=== PATIENT | female | born 1955 | race Caucasian/White ===

== ENCOUNTER 2017-05-04 11:01 | Emergency (ER) | payer OTHER ==
[~2017-05-04] VITALS: Ht 165.1 cm; Wt 100.3 kg
[~2017-05-04 11:01] MED LIST: TRICOR145 MG PO; WYGESIC,DARV1 TABLET PO
[2017-05-04 15:01] LABS: ANION GAP 11 MEQ/L (2-14); CHLORIDE 100 MEQ/L (99-109); GFR ESTIMATE (CALCULATED) > 59 mL/min/; GLUCOSE 119 mg/dL (70-99); POTASSIUM 3.5 MEQ/L (3.7-5.4); SAMPLE HEMOLYSIS CHECK 0; SAMPLE ICTERIC CHECK 0; SAMPLE LIPEMIA CHECK 0; SODIUM 137 MEQ/L (136-147); UREA NITROGEN (BUN) 7 mg/dL (9-23)
[2017-05-04 15:05] LABS: TROP-I INTERPRETATION NEGATIVE; TROPONIN-I 0.01 ng/mL (0.0-0.30)
[2017-05-04 15:52] VITALS: BP 158/98
== END 2017-05-04 15:53 | disposition home or self-care (01) ==
LOC: EME 11:01
PROVIDERS: Physician Assistant
DX: R07.9 Chest pain, unspecified (principal); R23.2 Flushing; T50.2X5A Adverse effect of carbonic-anhydrase inhibitors, benzothiadiazides and other diuretics, initial encounter; T43.225A Adverse effect of selective serotonin reuptake inhibitors, initial encounter; I10 Essential (primary) hypertension; E78.5 Hyperlipidemia, unspecified; Z90.12 Acquired absence of left breast and nipple
CPT/HCPCS: 71020; 80048; 84484; 93005; 99281; 99284

== ENCOUNTER 2017-05-22 12:32 | Day surgery (SDC) | payer OTHER ==
[~2017-05-22] VITALS: Ht 167.6 cm; Wt 100.9 kg
[~2017-05-22 12:32] MED LIST changes: +ASCORBIC ACID500 M3 PO; +COMBIGAN O20 DROP/5 LEFT EYE; +DIAMOX SEQUELS500 MG PO; +POLYTRIM EYE DR10 ML LEFT EYE; +PRED FORTE100 DROP/5 LEFT EYE
[2017-05-22 13:30] LABS: HEMATOCRIT 40.2 % (36.0-46.0); MCH 29.4 PG (29.0-34.0); MCHC 34.1 G/DL (30.0-36.0); MCV 86.3 FL (83-99); MEAN PLAT.VOLUME 9.6 uM^3 (9.5-12.4); PLATELET COUNT 325 K/uL (156-360); RBC DIS.WIDTH-CV 12.6 % (11.8-14.6); RBC DIS.WIDTH-SD 39.6 % (39-53); RED BLOOD COUNT 4.66 M/uL (3.80-5.20); WHITE BLOOD COUNT 7.8 K/uL (4.1-10.2)
[2017-05-22 13:47] VITALS: BP 160/80
[2017-05-22 14:01] LABS: ALKALINE PHOSPHATASE 68 IU/L (3-129); ANION GAP 12 MEQ/L (2-14); CHLORIDE 109 MEQ/L (99-109); GFR ESTIMATE (CALCULATED) > 59 mL/min/; GLUCOSE 103 mg/dL (70-99); POTASSIUM 3.5 MEQ/L (3.7-5.4); SAMPLE HEMOLYSIS CHECK 0; SAMPLE ICTERIC CHECK 0; SAMPLE LIPEMIA CHECK 0; SODIUM 139 MEQ/L (136-147); TOTAL BILIRUBIN 0.6 MG/DL (0.0-1.0); UREA NITROGEN (BUN) 13 mg/dL (9-23)
[2017-05-22 16:53] VITALS: BP 142/72
[2017-05-22 17:35] VITALS: BP 160/78
== END 2017-05-22 17:50 | disposition home or self-care (01) ==
LOC: SDC 12:32
PROVIDERS: Ophthalmology
DX: H59.022 Cataract (lens) fragments in eye following cataract surgery, left eye (principal); F41.9 Anxiety disorder, unspecified; E66.9 Obesity, unspecified; Z68.35 Body mass index [BMI] 35.0-35.9, adult; E55.9 Vitamin D deficiency, unspecified; Z85.3 Personal history of malignant neoplasm of breast; Z92.21 Personal history of antineoplastic chemotherapy; Z92.3 Personal history of irradiation
CPT/HCPCS: 80053; 85027; J0690; J2405; J3010; J3300